=== PATIENT | male | born 1960 | race Caucasian/White ===

== ENCOUNTER 2017-02-16 16:37 | Emergency (ER) | payer OTHER ==
[~2017-02-16] VITALS: Ht 175.3 cm; Wt 80.0 kg
[~2017-02-16 16:37] MED LIST: ALBU0.08 NEB; BUSP30TA PO; CHLO200T5 PO; CHOL1TAB42 PO; CYAN1TAB18 PO; FLUO60TA PO; GABA300C5 PO; LISI-519 PO; MAPA500T PO; NAPR500T PO; PANT40TA3 PO; ROBA750T PO; ROPI.5 PO; VENTAER INH; ZOFR8TAB4 SL
[2017-02-16 16:39] VITALS: BP 138/57; PULSE 104; RESP 17; TEMP 98; O2SAT 98
[2017-02-16] MEDS ORDERED: TETANUS/DIPHTHERIA TOXOID ADULT 0.5 ML VIAL IM ONE (18:30)
--- NOTE | 2017-02-16 18:35 | PD ---
HPI Chief Complaint: Syncope/Near-Syncope Time Seen by Provider: 18:11 Travel History International Travel<30 days: No Contact w/Intl Traveler<30days: No Traveled to known affect area: No History of Present Illness HPI The patient is a 56-year-old male who presents emergency department for left hand pain. The patient states he has a history of syncope, has had multiple admissions in the past with workups including MRI, CT, EEG, Holter monitor, cardiology follow-up, and neurology follow-up. The patient states they can never find a cause of his syncope. The patient states he had a syncopal episode yesterday and landed on his left hand. The patient currently complains of left hand pain over the base of the second and third digit of the left hand with mild swelling. He also notes some superficial abrasions to the second, third, fourth digit of the left hand. He cannot recall his last tetanus shot. He denies any head trauma and denies any current headache, chest pain, shortness breath, palpitations, neck pain, nausea, vomiting, or difficulty moving the upper or lower extremities. The patient is right-hand dominant. PFSH Past Medical History Narrative Medical History of syncope multiple times Arthritis: No Asthma: Yes Autoimmune Disease: No Blood Disorders: No Anxiety: Yes Depression: Yes Heart Rhythm Problems: No Cancer: No Cardiac Catheterization: Yes Cardiovascular Problems: No High Cholesterol: Yes Chemotherapy: No Chest Pain: Yes Congestive Heart Failure: No COPD: Yes Cerebrovascular Accident: No Dementia: Yes Diabetes: No Diminished Hearing: No Endocrine: No Gastrointestinal Disorders: Yes (GERD) GERD: Yes Glaucoma: No Genitourinary: No Headaches: Yes Hepatitis: No Hiatal Hernia: No Hypertension: Yes Immune Disorder: No Implanted Vascular Access Dvce: No Kidney Stones: No Musculoskeletal: No Neurologic: Yes (PRESENILE DEMENTIA, SCHIZO) Psychiatric: Yes (SCHIZO PARANOID) Reproductive: No Respiratory: Yes (ASTHMA) Immunizations Current: No Migraines: No Myocardial Infarction: No Radiation Therapy: No Renal Failure: No Schizophrenia: Yes Seizures: Yes Sickle Cell Disease: No Sleep Apnea: No Thyroid Disease: No Ulcer: No Tetanus Vaccination: < 5 Years Influenza Vaccination: No Past Surgical History Abdominal Surgery: Yes (APPY) AICD: No Appendectomy: Yes Arteriovenous Shunt: No Body Medical Devices: NONE Cardiac Surgery: No Cholecystectomy: No Ear Surgery: No Endocrine Surgery: No Eye Surgery: No Genitourinary Surgery: No Gynecologic Surgery: No Insulin Pump: No Joint Replacement: No Neurologic Surgery: No Oral Surgery: No Pacemaker: No Thoracic Surgery: No Other Surgery: Yes Social History Alcohol Use: Yes (OCC) Tobacco Use: Yes (2 PPD) Substance Use: Yes ( MARIJUANA MONTHLY) Allergies-Medications (Allergen,Severity, Reaction): Coded Allergies: Iodine (Verified Allergy, Severe, Cardiac Arrest, 02/16/17) *MDRO Multi-Drug Resistant Organism (Verified Allergy, Unknown, 02/16/17) MRSA Sputum 06/2009 Penicillin (Verified Allergy, Unknown, pt states not allergic to penicillin, 02/16/17) Reported Meds & Prescriptions Reported Meds & Active Scripts Active Reported Mapap (Acetaminophen) 500 Mg Tab 500 Mg PO DAILY PRN Zofran Odt (Ondansetron Odt) 8 Mg Tab 8 Mg SL Q8H PRN Eql B-12 (Cyanocobalamin) 1,000 Mcg Tab 1,000 Mcg PO DAILY Ventolin Hfa 18 GM Inh (Albuterol Sulfate) 90 Mcg/Act Aer 1 Puff INH Q6HR PRN Albuterol Neb (Albuterol Sulfate) 2.5 Mg/3 Ml Neb 2.5 Mg NEB TID NEB PRN Fluoxetine (Fluoxetine HCl) 60 Mg Tab 60 Mg PO DAILY Pantoprazole (Pantoprazole Sodium) 40 Mg Tab 40 Mg PO DAILY Gabapentin 300 Mg Cap 300 Mg PO HS Lisinopril 5 Mg Tab 5 Mg PO DAILY Vitamin D-3 (Cholecalciferol) 2,000 Unit Tab 2,000 Units PO DAILY Chlorpromazine (Chlorpromazine HCl) 200 Mg Tab 400 Mg PO HS Chlorpromazine (Chlorpromazine HCl) 200 Mg Tab 200 Mg PO BID Requip (Ropinirole HCl) 0.5 Mg Tab 0.5 Mg PO BID Buspirone (Buspirone HCl) 30 Mg Tab 30 Mg PO TID Review of Systems Except as stated in HPI: all other systems reviewed are Neg HENT: No: Lightheadedness Cardiovascular: Positive: Syncope, No: Chest Pain or Discomfort, Palpitations , Irregular Rhythm, Tachycardia, Diaphoresis Respiratory: No: Shortness of Breath Gastrointestinal: No: Nausea, Vomiting, Abdominal Pain Musculoskeletal: Positive: Edema, Pain, No: Weakness Neurologic: Positive: Syncope, No: Dizziness Physical Exam Narrative GENERAL: Awake, alert, pleasant 56-year-old male who appears his stated age and is in no acute respiratory distress. SKIN: Focused skin assessment warm/dry. HEAD: Atraumatic. Normocephalic. EYES: Pupils equal and round. No scleral icterus. No injection or drainage. ENT: No nasal bleeding or discharge. Mucous membranes pink and moist. NECK: Trachea midline. No JVD. No tenderness of the cervical vertebrae. CARDIOVASCULAR: Regular rate and rhythm. No murmur appreciated. RESPIRATORY: No accessory muscle use. Clear to auscultation. Breath sounds equal bilaterally. GASTROINTESTINAL: Abdomen soft, non-tender, nondistended. Well-healed scar right lower quadrant. No rebound tenderness. MUSCULOSKELETAL: The left hand is mildly edematous and tender over the distal second and third metacarpal. Slightly limited range of motion secondary edema. Positive left radial pulse. Superficial abrasions to the extensor surface of the second, third, fourth digit of the left hand. NEUROLOGICAL: Awake and alert. No obvious cranial nerve deficits. Motor grossly within normal limits. Normal speech. Nonfocal. Oriented 4. Follows commands without difficulty. PSYCHIATRIC: Appropriate mood and affect; insight and judgment normal. Data Data Last Documented VS Vital Signs Date Time Temp Pulse Resp B/P Pulse Ox O2 Delivery O2 Flow Rate FiO2 02/16/17 18:17 Room Air 02/16/17 16:39 98.0 104 17 138/57 98 Orders Hand, Limited (2vws) (02/16/17 ) Tetanus/Diphtheria Tox Adult (Tetanus/Di (02/16/17 18:30) Splinting (02/16/17 ) MDM Medical Decision Making Medical Screen Exam Complete: Yes Emergency Medical Condition: Yes Medical Record Reviewed: Yes Differential Diagnosis Differential diagnosis includes arrhythmia, syncope, vasovagal 60, seizure, fracture, contusion, cellulitis. Narrative Course I had a discussion with the patient regarding his syncope. The patient states he's had multiple workups including MRI, CT, Holter monitor, echocardiogram, EEG , neurology follow-up, and cardiology follow-up. The patient requests no further workup in regards to his syncope. The patient's left hand was swollen and edematous, therefore, x-ray of the left hand was obtained. Tetanus shot was updated. Diagnosis Primary Impression: Metacarpal bone fracture Qualified Code: S62.305A - Closed displaced fracture of fourth metacarpal bone of left hand, unspecified portion of metacarpal, initial encounter Additional Impressions: Fracture of third metacarpal bone Qualified Code: S62.303A - Closed displaced fracture of third metacarpal bone of left hand, unspecified portion of metacarpal, initial encounter Abrasions of multiple sites Referrals: Rafaela Townsend MD call for appointment Patient Instructions: General Instructions Additional Instructions: Ulnar gutter splint as directed. Medications as directed. Follow-up with hand surgery. Elevate, ice, return if symptoms worsen or progress. Med/Other Pt SpecificInfo: Prescription(s) given Scripts Sulfamethoxazole-Trimethoprim (Bactrim DS)800-160 Mg Tab1 Tab PO BID #14 TAB Ref 0 Prov:Abimael Zendejas MD 02/16/17 Ibuprofen 600 Mg [id number] Mg PO Q6H PRN (Pain/Inflammation) #20 TAB Ref 0 Prov:Abimael Zendejas MD 02/16/17 Disposition: 01 DISCHARGE HOME Condition: Stable Abimael Zendejas MD Feb 16, 2017 18:34
[2017-02-16] MEDS ORDERED: BACT800T5 PO (18:59)
[2017-02-16] MEDS ORDERED: IBUP-232 PO (18:59)
--- NOTE | 2017-02-16 19:39 | RADRPT ---
EXAM DATE/TIME: 02/16/2017 18:39 [facility] COMPARISON: No previous studies available for comparison. INDICATIONS : Fall. MEDICAL HISTORY : None. SURGICAL HISTORY : None. ENCOUNTER: Initial ACUITY: 1 day PAIN SCORE: 10/10 LOCATION: Left hand FINDINGS: There are acute mildly displaced fractures involving the shafts of the left 3rd and 4th metacarpals. Associated soft-tissue swelling is noted along the dorsum of the left hand. CONCLUSION: 1. Acute mildly displaced fractures involving the shafts of the left 3rd and 4th metacarpals with as sociated soft-tissue swelling dorsally. Woo Sandoval MD on February 16, 2017 at 19:28 Board Certified Radiologist. This report was verified electronically.
== END 2017-02-16 20:24 | disposition home or self-care (01) ==
LOC: NEPB 16:37
DX: S62.325A Displaced fracture of shaft of fourth metacarpal bone, left hand, initial encounter for closed fracture (principal); S62.323A Displaced fracture of shaft of third metacarpal bone, left hand, initial encounter for closed fracture; R55 Syncope and collapse; S60.411A Abrasion of left index finger, initial encounter; S60.413A Abrasion of left middle finger, initial encounter; S60.415A Abrasion of left ring finger, initial encounter; W01.0XXA Fall on same level from slipping, tripping and stumbling without subsequent striking against object, initial encounter; Y93.89 Activity, other specified; Y92.009 Unspecified place in unspecified non-institutional (private) residence as the place of occurrence of the external cause; J45.909 Unspecified asthma, uncomplicated; I10 Essential (primary) hypertension; F17.210 Nicotine dependence, cigarettes, uncomplicated; Z23 Encounter for immunization
CPT/HCPCS: 29125; 73120; 90471; 90714

== ENCOUNTER 2019-01-13 14:48 | Inpatient (IN) ==
[2019-01-13] MEDS ORDERED: Sod Chloride 0.9% Inj 1,000 ML IV.SIG ONE (15:13)
--- NOTE | 2019-01-13 15:17 | ED ---
HPI General Chief complaint: Syncope Stated complaint: Poss Syncope Time Seen by Provider: 01/13/19 15:12 History of Present Illness HPI narrative: 58-year-old male with a history of COPD, schizophrenia is brought to the emergency department by EMS for evaluation of syncope. Per EMS report the patient was on his front porch when he had an episode of syncope and collapse witnessed by his . The patient states that he has had nausea and vomiting for the last week. States that he has been unable to keep any food or fluids down due to vomiting. States he has not had a bowel movement in the last week. States he has had episodes of vomiting like this in the past, states he is supposed to be on medications for this at home but is unsure what they are called. States that today he has been feeling weak and lightheaded. States that he does recall feeling as though he was going to pass out prior to the syncopal episode. States he has passed out in the past as well. States he has had shortness of breath which is typical for him due to COPD. States he has had mild abdominal discomfort. Denies any fever, chills, chest pain, diarrhea, black or bloody stool, cough or cold symptoms, headache, numbness or tingling, one-sided weakness. He is awake, alert and oriented to person, place and year but is unsure of the date. No other complaints. Related Data Home Medications Medication Instructions Recorded Confirmed atorvastatin 40 mg PO QPM 01/13/19 01/13/19 buspirone 30 mg PO TID 01/13/19 01/13/19 chlorpromazine 200 mg PO BID 01/13/19 01/13/19 diphenhydramine HCl 100 mg PO HS 01/13/19 01/13/19 gabapentin 300 mg PO HS 01/13/19 01/13/19 pantoprazole 40 mg PO BID 01/13/19 01/13/19 trazodone 100 mg PO HS 01/13/19 01/13/19 Allergies Allergy/AdvReac Type Severity Reaction Status Date / Time iodine Allergy Severe Cardiac Verified 01/13/19 16:05 Arrest potassium iodide Allergy Severe Cardiac Verified 01/13/19 16:05 Arrest povidone-iodine Allergy Severe Cardiac Verified 01/13/19 16:05 Arrest sodium iodide Allergy Severe Cardiac Verified 01/13/19 16:05 Arrest sodium iodide Allergy Severe Cardiac Verified 01/13/19 16:05 Arrest penicillin G Allergy Unknown pt states Verified 01/13/19 16:05 not allergic to penicillin *MDRO Multi-Drug Resistant Allergy Unknown unknown Uncoded 01/13/19 16:05 Organism Review of Systems ROS: all other systems reviewed are negative [facility] Medical History Medical History Asthma (Acute) COPD (chronic obstructive pulmonary disease) (Acute) Schizophrenia (Acute) Seizure (Acute) Surgical History Surgical History History of appendectomy (Acute) Social History Social History Substance History: No History of Abuse Second Hand Smoke Exposure: No Smoking Status: Current every day smoker Tobacco Type: Cigarettes How Often Do You Have a Drink Containing Alcohol: 4 or more times a week Recent Travel in [facility] within the Last 8 Weeks: No Recent Out of Country Travel within the Last 8 Weeks: No Exam Narrative Exam Narrative: GENERAL: Well-nourished and well-developed pleasant patient in no acute distress who is nontoxic appearing. SKIN: Warm and dry without any obvious rashes or lesions. HEAD: Normocephalic and atraumatic. EYES: No injection, drainage, or hyphema noted. PERRLA. EOMI. ENT: No nasal drainage noted. Oropharynx is clear and the TMs are normal with good landmarks. NECK: Supple and the trachea is midline. CARDIOVASCULAR: Regular rate and rhythm. RESPIRATORY: Breath sounds are equal bilaterally with no accessory muscle use, wheezing, rhonchi, or crackles. GASTROINTESTINAL: Mild generalized abdominal tenderness to palpation. Abdomen is soft and nondistended. MUSCULOSKELETAL: No obvious deformities, swelling, cyanosis, or ecchymosis is present throughout the upper and lower extremities. Patient has full range of motion without any signs of neurovascular compromise. Distal pulses are 2+ throughout. Strength 5/5 upper and lower extremities equal bilaterally. NEUROLOGICAL: Awake, alert, and oriented. Normal speech and gait. Cranial nerves are grossly intact. Course Initial Documented Vital Signs Temperature 98.7 F 01/13/19 15:06 Pulse Rate 99 H 01/13/19 15:06 Respiratory Rate 16 01/13/19 15:06 Blood Pressure 106/64 01/13/19 15:06 Pulse Oximetry 95 01/13/19 15:06 Last Documented Vital Signs Temperature 97.8 F 01/14/19 04:05 Pulse Rate 78 01/14/19 04:05 Respiratory Rate 20 01/14/19 04:05 Blood Pressure 112/60 01/14/19 04:05 Pulse Oximetry 92 L 01/14/19 04:05 Medical Decision Making SHRAVAN Attestation SHRAVAN supervised visit: Yes Attestation: I, Dr. Bowden, have reviewed the advance practice practitioner's documentation and am in agreement, met with the patient face to face, made the diagnosis, and the medical decision making was done by me. *My assessment and Findings: Patient is a 58 year old male who comes in after a syncopal episode. Patient reports multiple episodes of vomiting daily for months. He says he has passed out in the past. Exam shows no abdominal tenderness to palpation, he is awake, alert, in no acute distress. Labs concerning for potassium of 2.1, sodium 121. Potassium replaced. Given 1 L NS. Admitted for further management. [facility] Narrative Medical decision making narrative: 58-year-old male presents to the emergency department by EMS for evaluation of vomiting, generalized weakness and syncopal episode. Patient is afebrile, vital signs are stable. IV access is obtained, labs of been drawn and sent. Patient is placed on cardiac telemetry and pulse oximetry monitoring. Patient is administered IV fluids. Chest x-ray is negative. CBC shows leukocytosis with white blood count 27.8, otherwise unremarkable. Coags are unremarkable. CMP shows acute kidney injury with creatinine 2.83, BUN 54, GFR 23. Hyponatremia with sodium 121. Hypokalemia with potassium 2.1. Troponin is less than 0.02. Lactic acid and blood cultures are pending. Head CT is unremarkable. Chest x-ray is unremarkable. CT of the abdomen and pelvis without contrast shows a tiny nonobstructing stone in the right kidney and hazy opacity right lower lobe possibly inflammatory otherwise unremarkable. Patient is administered 50 mEq orally of potassium and 30 mEq IV for repletion. Patient is administered Rocephin 1 g IV, Zithromax 500 mg IV and clindamycin 600 mg IV to cover for either community-acquired pneumonia or aspiration pneumonia. I spoke with Dr. Rodriguez [facility] who accepts the patient to his service for admission. Medical Screen Exam Complete: Yes Emergency Medical Condition: Yes Differential Diagnosis Differential Diagnosis: Dehydration versus electrolyte abnormality versus gastroenteritis versus colitis versus bowel obstruction Lab Data Result diagrams: 01/13/19 15:34 01/13/19 19:15 Lab Results 01/13/19 01/13/19 01/13/19 Range/Units 15:34 15:34 15:34 WBC 27.8 H (4.0-11.0) th/mm3 RBC 4.78 (4.50-5.90) mil/mm3 Hgb 14.8 (13.0-17.0) gm/dL Hct 42.4 (39.0-51.0) % MCV 88.7 (80.0-100.0) fL MCH 31.1 (27.0-34.0) pg MCHC 35.0 (32.0-36.0) % RDW 15.5 (11.6-17.2) % Plt Count 355 (150-450) th/mm3 MPV 9.9 (7.0-11.0) fL Prelim Diff (Auto) Slide review pending Neut % (Auto) 85.5 H (16.0-70.0) % Lymph % (Auto) 5.5 L (9.0-44.0) % [place] % (Auto) 8.9 H (0.0-8.0) % Eos % (Auto) 0.0 (0.0-4.0) % Baso % (Auto) 0.1 (0.0-2.0) % Neut # (Auto) 23.8 H (1.8-7.7) th/mm3 Lymph # (Auto) 1.5 (1.0-4.8) th/mm3 [place] # (Auto) 2.5 H (0.0-0.9) th/mm3 Eos # (Auto) 0.0 (0.0-0.4) th/mm3 Baso # (Auto) 0.0 (0.0-0.2) th/mm3 WBC Differential Manual diff final Seg Neuts % (Manual) 85 H (16-70) % Band Neuts % (Manual) 2 (0-6) % Lymphocytes % (Manual) 5 L (9-44) % Monocytes % (Manual) 7 (0-8) % Promyelocytes % (Man) 1 H (0-0) % Abs Neuts (Manual) 24.5 H (1.8-7.7) th/mm3 Differential Comment . Dohle Bodies Present H (None) Platelet Estimate Normal (Normal) Platelet Morphology Normal (Normal) PT 9.8 (9.8-11.6) sec INR 1.0 Ratio APTT 33.6 H (23.4-31.7) sec Sodium 121 L* (136-145) meq/L Potassium 2.1 L* (3.5-5.1) meq/L Chloride 71 L (98-107) meq/L Carbon Dioxide 32.8 H (21.0-32.0) meq/L Anion Gap 17 H (5-15) meq/L BUN 54 H (7-18) mg/dL Creatinine 2.83 H (0.60-1.30) mg/dL Estimated GFR 23 L (>89) mL/min Random Glucose 120 H (74-106) mg/dL Lactic Acid (0.4-2.0) mmol/L Calcium 8.8 (8.5-10.1) mg/dL Magnesium 2.6 H (1.5-2.5) mg/dL Total Bilirubin 1.1 H (0.2-1.0) mg/dL AST 23 (15-37) U/L ALT 23 (12-78) U/L Alkaline Phosphatase 102 (45-117) U/L Troponin I Less than 0.02 L (0.02-0.05) ng/mL B-Natriuretic Peptide (0-100) pg/mL Total Protein 7.7 (6.4-8.2) g/dL Albumin 3.8 (3.4-5.0) g/dL Urine Color (Yellw/Straw) Urine Clarity (Clear) Urine pH (5.0-8.5) Ur Specific [place] (1.002-1.035) Urine Protein (Neg-Trace) mg/dL Urine Glucose (UA) (Negative) mg/dL Urine Ketones (Negative) mg/dL Urine Occult Blood (Negative) Urine Nitrate (Negative) Urine Bilirubin (Negative) Urine Urobilinogen (Less than 2) mg/dL Ur Leukocyte Esterase (Negative) Urine WBC (0-5) /hpf Hyaline Casts (0-3) /lpf Urine Mucus (Occasional) /lpf Micro UA Comment Ur Microscopic Review Urine Culture Comments 01/13/19 01/13/19 01/13/19 Range/Units 15:34 19:10 19:15 WBC (4.0-11.0) th/mm3 RBC (4.50-5.90) mil/mm3 Hgb (13.0-17.0) gm/dL Hct (39.0-51.0) % MCV (80.0-100.0) fL MCH (27.0-34.0) pg MCHC (32.0-36.0) % RDW (11.6-17.2) % Plt Count (150-450) th/mm3 MPV (7.0-11.0) fL Prelim Diff (Auto) Neut % (Auto) (16.0-70.0) % Lymph % (Auto) (9.0-44.0) % [place] % (Auto) (0.0-8.0) % Eos % (Auto) (0.0-4.0) % Baso % (Auto) (0.0-2.0) % Neut # (Auto) (1.8-7.7) th/mm3 Lymph # (Auto) (1.0-4.8) th/mm3 [place] # (Auto) (0.0-0.9) th/mm3 Eos # (Auto) (0.0-0.4) th/mm3 Baso # (Auto) (0.0-0.2) th/mm3 WBC Differential Seg Neuts % (Manual) (16-70) % Band Neuts % (Manual) (0-6) % Lymphocytes % (Manual) (9-44) % Monocytes % (Manual) (0-8) % Promyelocytes % (Man) (0-0) % Abs Neuts (Manual) (1.8-7.7) th/mm3 Differential Comment Dohle Bodies (None) Platelet Estimate (Normal) Platelet Morphology (Normal) PT (9.8-11.6) sec INR Ratio APTT (23.4-31.7) sec Sodium (136-145) meq/L Potassium (3.5-5.1) meq/L Chloride (98-107) meq/L Carbon Dioxide (21.0-32.0) meq/L Anion Gap (5-15) meq/L BUN (7-18) mg/dL Creatinine (0.60-1.30) mg/dL Estimated GFR (>89) mL/min Random Glucose (74-106) mg/dL Lactic Acid 1.3 (0.4-2.0) mmol/L Calcium (8.5-10.1) mg/dL Magnesium (1.5-2.5) mg/dL Total Bilirubin (0.2-1.0) mg/dL AST (15-37) U/L ALT (12-78) U/L Alkaline Phosphatase (45-117) U/L Troponin I (0.02-0.05) ng/mL B-Natriuretic Peptide 16 (0-100) pg/mL Total Protein (6.4-8.2) g/dL Albumin (3.4-5.0) g/dL Urine Color Yellow (Yellw/Straw) Urine Clarity Hazy H (Clear) Urine pH 5.0 (5.0-8.5) Ur Specific [place] 1.016 (1.002-1.035) Urine Protein Negative (Neg-Trace) mg/dL Urine Glucose (UA) Negative (Negative) mg/dL Urine Ketones Negative (Negative) mg/dL Urine Occult Blood Negative (Negative) Urine Nitrate Negative (Negative) Urine Bilirubin Negative (Negative) Urine Urobilinogen Less than 2 (Less than 2) mg/dL Ur Leukocyte Esterase Negative (Negative) Urine WBC 1 (0-5) /hpf Hyaline Casts 55 (0-3) /lpf Urine Mucus Few H (Occasional) /lpf Micro UA Comment Culture not ind Ur Microscopic Review Not Reportable Urine Culture Comments Culture not ind 01/13/19 Range/Units 19:15 WBC (4.0-11.0) th/mm3 RBC (4.50-5.90) mil/mm3 Hgb (13.0-17.0) gm/dL Hct (39.0-51.0) % MCV (80.0-100.0) fL MCH (27.0-34.0) pg MCHC (32.0-36.0) % RDW (11.6-17.2) % Plt Count (150-450) th/mm3 MPV (7.0-11.0) fL Prelim Diff (Auto) Neut % (Auto) (16.0-70.0) % Lymph % (Auto) (9.0-44.0) % [place] % (Auto) (0.0-8.0) % Eos % (Auto) (0.0-4.0) % Baso % (Auto) (0.0-2.0) % Neut # (Auto) (1.8-7.7) th/mm3 Lymph # (Auto) (1.0-4.8) th/mm3 [place] # (Auto) (0.0-0.9) th/mm3 Eos # (Auto) (0.0-0.4) th/mm3 Baso # (Auto) (0.0-0.2) th/mm3 WBC Differential Seg Neuts % (Manual) (16-70) % Band Neuts % (Manual) (0-6) % Lymphocytes % (Manual) (9-44) % Monocytes % (Manual) (0-8) % Promyelocytes % (Man) (0-0) % Abs Neuts (Manual) (1.8-7.7) th/mm3 Differential Comment Dohle Bodies (None) Platelet Estimate (Normal) Platelet Morphology (Normal) PT (9.8-11.6) sec INR Ratio APTT (23.4-31.7) sec Sodium 126 L (136-145) meq/L Potassium 2.9 L* D (3.5-5.1) meq/L Chloride 83 L D (98-107) meq/L Carbon Dioxide 31.3 (21.0-32.0) meq/L Anion Gap 12 (5-15) meq/L BUN 48 H (7-18) mg/dL Creatinine 2.11 H (0.60-1.30) mg/dL Estimated GFR 33 L (>89) mL/min Random Glucose 106 (74-106) mg/dL Lactic Acid (0.4-2.0) mmol/L Calcium 7.7 L D (8.5-10.1) mg/dL Magnesium (1.5-2.5) mg/dL Total Bilirubin (0.2-1.0) mg/dL AST (15-37) U/L ALT (12-78) U/L Alkaline Phosphatase (45-117) U/L Troponin I (0.02-0.05) ng/mL B-Natriuretic Peptide (0-100) pg/mL Total Protein (6.4-8.2) g/dL Albumin (3.4-5.0) g/dL Urine Color (Yellw/Straw) Urine Clarity (Clear) Urine pH (5.0-8.5) Ur Specific [place] (1.002-1.035) Urine Protein (Neg-Trace) mg/dL Urine Glucose (UA) (Negative) mg/dL Urine Ketones (Negative) mg/dL Urine Occult Blood (Negative) Urine Nitrate (Negative) Urine Bilirubin (Negative) Urine Urobilinogen (Less than 2) mg/dL Ur Leukocyte Esterase (Negative) Urine WBC (0-5) /hpf Hyaline Casts (0-3) /lpf Urine Mucus (Occasional) /lpf Micro UA Comment Ur Microscopic Review Urine Culture Comments Imaging Data Radiologist's impression: Chest X-Ray 01/13/19 15:13 CONCLUSION: Negative for acute process Head CT 01/13/19 15:13 CONCLUSION: 1. Negative CT Head non contrast. . . Abdomen/Pelvis CT 01/13/19 15:17 CONCLUSION: There is a tiny nonobstructing stone in the right kidney with hazy opacity right lower lobe possibly inflammatory, otherwise unremarkable. Discharge Plan Discharge Disposition Patient Disposition: ED Admit(ED Internal Use Only) Discharge Condition Condition: Stable Discharge Order Discharge Orders: ED Use Only Admit Order (Routine); Ordered 01/13/19 Ordered By: Christina George Discharge Details Diagnosis: MARY BETH (acute kidney injury), Hyponatremia, Hypokalemia, Pneumonia, Syncope Physicians Team ED Provider: Natalie Bowden ED Midlevel Provider: Christina George Primary Care Provider: Temo Hunt Attending Provider: Haile Cruz Other Providers: Stanley Rome Status ED Status: Left Department Discharge Information Discharge Date/Time: 01/13/19 21:35
--- NOTE | 2019-01-13 15:58 | XR ---
EXAM DATE: 01/13/2019 3:48 PM EST AGE/SEX: 58 years / Male INDICATIONS: Patient has syncopal episode today and shortness of breath. CLINICAL DATA: This is the patient's initial encounter. Patient reports that signs and symptoms have been present for 1 month and indicates a pain score of 3/10. MEDICAL/SURGICAL HISTORY: None. None. COMPARISON: [facility] [place]ST SINGLE AP, 04/14/2016. . FINDINGS: A single AP view of the chest demonstrates the lungs to be symmetrically aerated without evidence of mass, infiltrate or effusion. The cardiomediastinal contours are unremarkable. Osseous structures a re intact. CONCLUSION: Negative for acute process Electronically signed by: Mart Dodson MD Board Certified Radiologist 01/13/2019 3:57 PM EST
[2019-01-13 16:31] LABS: Activated Partial Thrombo Time 33.6 sec (23.4-31.7); Prothrombin Time 9.8 sec (9.8-11.6)
[2019-01-13 17:00] LABS: Alanine Aminotransferase 23 U/L (12-78); Albumin 3.8 g/dL (3.4-5.0); Alkaline Phosphatase 102 U/L (45-117); Anion Gap 17 meq/L (5-15); Aspartate Aminotransferase 23 U/L (15-37); Blood Urea Nitrogen 54 mg/dL (7-18); Calcium 8.8 mg/dL (8.5-10.1); Carbon Dioxide 32.8 meq/L (21.0-32.0); Chloride 71 meq/L (98-107); Glomerular Filtration Rate 23 mL/min (>89); Glucose,Random 120 mg/dL (74-106); Magnesium 2.6 mg/dL (1.5-2.5); Total Protein 7.7 g/dL (6.4-8.2)
--- NOTE | 2019-01-13 17:05 | CT ---
EXAM DATE: 01/13/2019 5:00 PM EST AGE/SEX: 58 years / Male INDICATIONS: Dizziness. Syncopal episode. CLINICAL DATA: This is the patient's initial encounter. Patient reports that signs and symptoms have been present for 1 day and indicates a pain score of 2/10. MEDICAL/SURGICAL HISTORY: Asthma. Chronic obstructive pulmonary disease. Seizures. Schizophrenia . Appendectomy. RADIATION DOSE: 46 CTDI (mGy) COMPARISON: No prior exams available for comparison. TECHNIQUE: CT of the head without contrast. Using automated exposure control and adjustment of the mA and/or kV according to patient size, radiation dose was kept as low as reasonably achievable to ob tain optimal diagnostic quality images. DICOM format image data is available electronically for revi ew and comparison. FINDINGS: Cerebrum: The ventricles are normal for age. No evidence of midline shift, mass lesion, hemorrhage or acute infarction. No extraaxial fluid collections are seen. Posterior Fossa: The cerebellum and brainstem are intact. The 4th ventricle is midline. The cerebe llopontine angle is unremarkable. Extracranial: The visualized portion of the orbits is intact. Skull: The calvaria is intact. No evidence of skull fracture. CONCLUSION: 1. Negative CT Head non contrast. . . Electronically signed by: Shawn Bardales MD Board Certified Radiologist 01/13/2019 5:04 PM EST
[2019-01-13 17:09] LABS: Baso % (Auto) 0.1 % (0.0-2.0); Hematocrit 42.4 % (39.0-51.0); Hemoglobin 14.8 gm/dL (13.0-17.0); Lymph # (Auto) 1.5 th/mm3 (1.0-4.8); Lymph % (Auto) 5.5 % (9.0-44.0); Mean Corpuscular Hemoglobin 31.1 pg (27.0-34.0); Mean Corpuscular Volume 88.7 fL (80.0-100.0); Mean Platelet Volume 9.9 fL (7.0-11.0); Mono # (Auto) 2.5 th/mm3 (0.0-0.9); Mono % (Auto) 8.9 % (0.0-8.0); Neut # (Auto) 23.8 th/mm3 (1.8-7.7); Neut % (Auto) 85.5 % (16.0-70.0); Platelet Count 355 th/mm3 (150-450); Potassium 2.1 meq/L (3.5-5.1); Red Blood Count 4.78 mil/mm3 (4.50-5.90); Red Cell Distribution Width 15.5 % (11.6-17.2); Sodium 121 meq/L (136-145); White Blood Count 27.8 th/mm3 (4.0-11.0)
--- NOTE | 2019-01-13 17:09 | CT ---
EXAM DATE: 01/13/2019 5:01 PM EST AGE/SEX: 58 years / Male INDICATIONS: Abdominal pain. Syncopal episode. CLINICAL DATA: This is the patient's initial encounter. Patient reports that signs and symptoms have been present for 1 day and indicates a pain score of 3/10. MEDICAL/SURGICAL HISTORY: Asthma. Chronic obstructive pulmonary disease. Seizures. Schizophr enia. Appendectomy. RADIATION DOSE: 6.28 CTDI (mGy) COMPARISON: No prior exams available for comparison. TECHNIQUE: Multiple contiguous axial images were obtained through the abdomen. Images were obtained using multiple row detector helical technique. Using automated exposure control and adjustment of the mA and/or kV according to patient size, radiation dose was kept as low as reasonably achievable to o btain optimal diagnostic quality images. DICOM format image data is available electronically for rev iew and comparison. FINDINGS: Abdomen CT: The liver, spleen, pancreas, right kidney, adrenals are unremarkable. There is a tiny 3 mm stone righ t lower pole kidney nonobstructing. There is no evidence for any appreciable pathological adenopathy, free fluid, or bowel obstruction. There is mild haziness right lower lobe anterolateral possibly inf lammatory process. There are atherosclerotic calcifications involving the aorta and iliac arteries ch ronic in nature. Pelvic CT: There is no evidence for mass, abscess formation, or any significant adenopathy within the pelvis. CONCLUSION: There is a tiny nonobstructing stone in the right kidney with hazy opacity right lower lo be possibly inflammatory, otherwise unremarkable. Electronically signed by: Juan Diego Pearson MD Board Certified Radiologist 01/13/2019 5:08 PM EST
[2019-01-13] MEDS ORDERED: Clindamycin 600 mg/NS Premix 600 MG/50 ML PIGGYBACK IV.SIG ONE (17:53)
[2019-01-13] MEDS ORDERED: Azithromycin Inj 500 MG in Sodium Chlor 0.9% Inj 250 ML IV.SIG ONE (17:53)
[2019-01-13] MEDS: Potassium Chlor 10 mEq Premix 10 MEQ/100 ML PIGGYBACK IV.SIG SCH ×3 (17:55→20:11)
[2019-01-13 18:09] LABS: Dohle Bodies Present; Lymphocytes 5 % (9-44); Monocytes 7 % (0-8); Platelet Estimate Normal (Normal); Platelet Morphology Normal (Normal); Promyelocyte 1 % (0-0)
--- NOTE | 2019-01-13 18:36 | P.HPIM ---
History of Present Illness Primary Care Physician: Temo Hunt MD Chief Complaint: 'I passed out'. History of Present Illness: patient is a 58 y/o male with history of schizophrenia who presented to ER after he passed out earlier. he says that he' s had persistent nausea and vomiting for the past few months. he reportedly had an EGD and colonoscopy recently which showed esophageal ulcers and colon polyps. he says that earlier today he had some sob and then he passed out. he remained unconscious for about three minutes. he denies any other prodromal symptoms before the incident including chest pain, dizziness. he denies any abdominal pain, diarrhea, cough, although he says that he had a low grade fever at home. Inpatient Certification Inpatient Certification: I certify that the inpatient services were ordered in accordance with Medicare regulations governing the order. This includes certification that hospital inpatient services are reasonable and necessary and in the case of services not specified as inpatient-only under 42 CFR 419.22(n), that they are appropriately provided as inpatient services in accordance to with the 2-midnight benchmark under 43 CFR 412.3(e) Estimated Total Length of Stay (Days): 2 Plans for Post Hospital Care: Home Review of Systems Review of Systems: all other systems reviewed are negative [facility] Medical History Medical History Asthma (Acute) COPD (chronic obstructive pulmonary disease) (Acute) Schizophrenia (Acute) Seizure (Acute) Surgical History Surgical History History of appendectomy (Acute) Social History Social History Substance History: Active Abuse Smoking Status: Current every day smoker Tobacco Type: Cigarettes How Often Do You Have a Drink Containing Alcohol: 4 or more times a week Recent Travel in [place] within the Last 8 Weeks: No Recent Out of Country Travel within the Last 8 Weeks: No Substance Abuse Detail Marijuana: Substance Use Status: Active Route Used Substance Abuse: Inhalation Immunization History Tetanus Immunization: Unsure Medications and Allergies Allergies Allergy/AdvReac Type Severity Reaction Status Date / Time iodine Allergy Severe Cardiac Verified 01/13/19 16:05 Arrest potassium iodide Allergy Severe Cardiac Verified 01/13/19 16:05 Arrest povidone-iodine Allergy Severe Cardiac Verified 01/13/19 16:05 Arrest sodium iodide Allergy Severe Cardiac Verified 01/13/19 16:05 Arrest sodium iodide Allergy Severe Cardiac Verified 01/13/19 16:05 Arrest penicillin G Allergy Unknown pt states Verified 01/13/19 16:05 not allergic to penicillin *MDRO Multi-Drug Resistant Allergy Unknown unknown Uncoded 01/13/19 16:05 Organism Home Medications Medication Instructions Recorded Confirmed Type atorvastatin 40 mg PO QPM 01/13/19 01/13/19 History buspirone 30 mg PO TID 01/13/19 01/13/19 History chlorpromazine 200 mg PO BID 01/13/19 01/13/19 History diphenhydramine HCl 100 mg PO HS 01/13/19 01/13/19 History gabapentin 300 mg PO HS 01/13/19 01/13/19 History pantoprazole 40 mg PO BID 01/13/19 01/13/19 History trazodone 100 mg PO HS 01/13/19 01/13/19 History Active Medications: Active Medications Gabapentin (Neurontin) 300 mg PO HS [facility] Potassium Chloride (Kcl 10 Meq Premix Inj) 10 meq in 100 mls @ 100 mls/hr IV.SIG Q1H ROSALVA Stop: 01/13/19 20:29 Last Admin: 01/13/19 17:55 Dose: 100 mls/hr Azithromycin 500 mg/ Sodium (Chloride) 250 mls @ 250 mls/hr IV.SIG ONCE ONE Stop: 01/13/19 18:52 Piperacillin/Tazobactam/Dextrose (Zosyn 2.25 Gm Premix) 2.25 gm in 50 mls @ 100 mls/hr IV.SIG Q6H ROSALVA Non-Formulary Medication (Buspirone [Buspirone]) 30 mg PO TID [facility] Non-Formulary Medication (Chlorpromazine [Chlorpromazine]) 200 mg PO BID [facility] Ondansetron HCl (Zofran Inj) 4 mg IV.PUSH Q8H PRN PRN Reason: NAUSEA Trazodone HCl (Desyrel) 100 mg PO HS [facility] Physical Exam Vital signs: Vital Signs 01/13/19 15:06 01/13/19 17:32 Temperature 98.7 F Pulse Rate 99 H 100 H Respiratory Rate 16 21 Blood Pressure 106/64 139/87 Pulse Oximetry 95 97 Intake & Output 02/21/19 02/22/19 02/22/19 18:59 06:59 18:59 Intake Total 1000 / 1000 Balance 1000 / 1000 Weight 81.647 kg Intake: IV 1000 / 1000 NS Inj 1,000 ML @ Wide Open IV. 1000 / 1000 SIG BOLUS ONE Rx#:[id number] Constitutional no acute distress Routine HEENT Exam Eye: Present PERRL Routine Neck Exam Present supple Routine Respiratory Exam Present CTA bilaterally Routine Cardiovascular Exam Present RRR Routine Abdominal Exam Present soft Routine Extremities Exam Comments: no pedal edema. Routine Neurological Exam Present alert and oriented X3 Results Labs CBC & Chem 7: 01/13/19 15:34 01/13/19 15:34 Imaging Impressions Chest X-Ray 01/13/19 15:13 CONCLUSION: Negative for acute process Head CT 01/13/19 15:13 CONCLUSION: 1. Negative CT Head non contrast. . . Abdomen/Pelvis CT 01/13/19 15:17 CONCLUSION: There is a tiny nonobstructing stone in the right kidney with hazy opacity right lower lobe possibly inflammatory, otherwise unremarkable. Caprini VTE Risk Assessment Caprini VTE Risk Assessment: Moderate/High Risk (score >= 2) Caprini Risk Assessment Model: Point Value = 1 Point Value = 2 Point Value = 3 Point Value = 5 Age 41-60 Minor surgery BMI > 25 kg/m2 Swollen legs Varicose veins or History of unexplained or recurrent spontaneous Oral contraceptives or hormone replacement Sepsis (< 1 month) Serious lung disease, including pneumonia (< 1 month) Abnormal pulmonary function Acute myocardial infarction Congestive heart failure (< 1 month) History of inflammatory bowel disease Medical patient at bed rest Age 61-74 Arthroscopic surgery Major open surgery (> 45 min) Laparoscopic surgery (> 45 min) Malignancy Confined to bed (> 72 hours) Immobilizing plaster cast Central venous access Age >= 75 History of VTE Family history of VTE Factor V Leiden Prothrombin [id number] Lupus anticoagulant Anticardiolipin antibodies Elevated serum homocysteine Heparin-induced thrombocytopenia Other congenital or acquired thrombophilia Stroke (< 1 month) Elective arthroplasty Hip, pelvis, or leg fracture Acute spinal cord injury (< 1 month) Prophylaxis Regimen: Total Risk Factor Score Risk Level Prophylaxis Regimen 0-1 Low Early ambulation 2 Moderate Order ONE of the following: *Sequential Compression Device (SCD) *Heparin 5000 units SQ BID 3-4 Higher Order ONE of the following medications: *Heparin 5000 units SQ TID *Enoxaparin/Lovenox 40 mg SQ daily (WT < 150 kg, CrCl > 30 mL/min) *Enoxaparin/Lovenox 30 mg SQ daily (WT < 150 kg, CrCl > 10-29 mL/min) *Enoxaparin/Lovenox 30 mg SQ BID (WT < 150 kg, CrCl > 30 mL/min) AND/OR *Sequential Compression Device (SCD) 5 or more Highest Order ONE of the following medications: *Heparin 5000 units SQ TID (Preferred with Epidurals) *Enoxaparin/Lovenox 40 mg SQ daily (WT < 150 kg, CrCl > 30 mL/min) *Enoxaparin/Lovenox 30 mg SQ daily (WT < 150 kg, CrCl > 10-29 mL/min) *Enoxaparin/Lovenox 30 mg SQ BID (WT < 150 kg, CrCl > 30 mL/min) AND *Sequential Compression Device (SCD) Assessment and Plan Plan A/P - acute kidney injury/ Hypokalemia/ Hyponatremia/ Dehydration due to intractable vomiting continue with IV fluid and electrolyte replacement- repeat BMP tonight- monitor on telemetry. -intractable nausea/vomiting will consult GI- antiemetics as needed -sepsis due to possible pneumonia - possible aspiration continue with broad spectrum IV antibiotics and follow the cultures- monitor CBC and temps. -schizophrenia resume home meds -DVT prophylaxis with subq Heparin. Discussed Condition With: ER physician, the patient and family. Discharge Planning: home when stable.
[2019-01-13 19:43] LABS: Bilirubin,Urine Negative (Negative); Clarity,Urine Hazy (Clear); Color,Urine Yellow (Yellw/Straw); Glucose,Urine (UA) Negative (Negative); Hyaline Casts,Urine 55 /lpf (0-3); Leukocyte Esterase,Urine Negative (Negative); Mucus,Urine Few /lpf (Occasional); Nitrite,Urine Negative (Negative); Specific Gravity,Urine 1.016 (1.002-1.035)
[2019-01-13] MEDS ORDERED: Piperacil/Tazo 2.25 GM Premix 2.25 GM/50 ML PIGGYBACK IV.SIG SCH (20:00)
[2019-01-13 20:12] LABS: Calcium 7.7 mg/dL (8.5-10.1); Carbon Dioxide 31.3 meq/L (21.0-32.0)
[2019-01-13 20:16] LABS: Potassium 2.9 meq/L (3.5-5.1)
[2019-01-13] MEDS: Sod Chloride 0.9% Inj 1,000 ML IV.CONT SCH (20:22)
[2019-01-13] MEDS ORDERED: Influenza (Quadrivalent) Vaccine 0.5 ML Syringe IM ONE (22:00)
[2019-01-13] MEDS: Gabapentin 300 MG Capsule PO SCH (22:15)
[2019-01-13] MEDS: traZODone 100 MG Tablet PO SCH (22:15)
[2019-01-13] MEDS ORDERED: Acetaminophen 325 MG Tablet PO ONE (23:47)
[2019-01-13] MEDS ORDERED: Sodium Chloride 0.9% 2 ML Flush PRN IV.FLUSH (23:53)
[2019-01-14] MEDS: Piperacil/Tazo 2.25 GM Premix 2.25 GM/50 ML PIGGYBACK IV.SIG SCH ×4 (03:35→21:34)
[2019-01-14] MEDS: Sod Chloride 0.9% Inj 1,000 ML IV.CONT SCH (03:48)
[2019-01-14 08:35] LABS: Baso % (Auto) 0.2 % (0.0-2.0); Eos % (Auto) 0.3 % (0.0-4.0); Hemoglobin 11.4 gm/dL (13.0-17.0); Lymph # (Auto) 2.3 th/mm3 (1.0-4.8); Lymph % (Auto) 19.1 % (9.0-44.0); Mean Corpuscular HGB Conc 34.5 % (32.0-36.0); Mean Corpuscular Hemoglobin 31.1 pg (27.0-34.0); Mean Corpuscular Volume 90.1 fL (80.0-100.0); Mean Platelet Volume 9.6 fL (7.0-11.0); Mono # (Auto) 1.1 th/mm3 (0.0-0.9); Mono % (Auto) 9.5 % (0.0-8.0); Neut # (Auto) 8.4 th/mm3 (1.8-7.7); Neut % (Auto) 70.9 % (16.0-70.0); Platelet Count 256 th/mm3 (150-450); Red Blood Count 3.66 mil/mm3 (4.50-5.90); Red Cell Distribution Width 15.6 % (11.6-17.2); White Blood Count 11.8 th/mm3 (4.0-11.0)
[2019-01-14] MEDS: Heparin - SQ 10,000 UNITS/ML Vial SQ SCH ×2 (08:44→20:36)
[2019-01-14] MEDS: Sodium Chloride 0.9% 2 ML Flush BID IV.FLUSH SCH ×2 (08:45→20:37)
[2019-01-14 09:07] LABS: Calcium 7.9 mg/dL (8.5-10.1); Carbon Dioxide 30.8 meq/L (21.0-32.0)
[2019-01-14 09:23] LABS: Potassium 2.2 meq/L (3.5-5.1)
[2019-01-14] MEDS: Potassium Chlor 20 mEq Premix 20 MEQ/100 ML PIGGYBACK IV.SIG SCH ×2 (10:14→13:00)
--- NOTE | 2019-01-14 12:05 | P.PNIM ---
Subjective Interval history: Patient reports he is feeling better today. He is tolerating a liquid diet. He wants to eat regular food. No more nausea or vomiting. Physical Exam Vital signs: Vital Signs 01/13/19 15:06 01/13/19 17:32 01/13/19 20:15 Temperature 98.7 F Pulse Rate 99 H 100 H 102 H Respiratory Rate 16 21 18 Blood Pressure 106/64 139/87 124/68 Pulse Oximetry 95 97 96 01/13/19 20:55 01/13/19 23:50 01/14/19 00:00 Temperature 98.6 F 99.7 F H Pulse Rate 97 H 96 H 94 H Respiratory Rate 20 20 Blood Pressure 111/67 108/57 L Pulse Oximetry 94 L 93 L 01/14/19 03:46 01/14/19 04:05 01/14/19 08:00 Temperature 97.8 F 98.4 F Pulse Rate 77 78 81 Respiratory Rate 20 18 Blood Pressure 112/60 101/66 Pulse Oximetry 92 L 94 L 01/14/19 11:21 Temperature Pulse Rate 84 Respiratory Rate 16 Blood Pressure Pulse Oximetry Intake & Output 01/13/19 01/14/19 01/14/19 18:59 06:59 18:59 Intake Total 1100 / 1100 1174 / 1174 600 / 600 Output Total 950 / 950 Balance 1100 / 1100 224 / 224 600 / 600 Weight 81.647 kg 70.2 kg Intake: IV 1100 / 1100 1054 / 1054 600 / 600 NS Inj 1,000 ML @ 100 mls/hr IV 550 / 550 550 / 550 .CONT .Q10H ROSALVA Rx#:[id number] Cleocin Inj 600 MG In NS Inj 104 / 104 100 ML @ 208 mls/hr IV.SIG ONCE ONE Rx#:[id number] Zosyn 2.25 GM Premix 2.25 gm In 100 / 100 50 / 50 50 ml @ 100 mls/hr IV.SIG Q6H ROSALVA Rx#:[id number] KCl 10 mEq Premix Inj 10 meq In 100 / 100 200 / 200 100 ml @ 100 mls/hr IV.SIG Q1H ROSALVA Rx#:[id number] NS Inj 1,000 ML @ Wide Open IV. 1000 / 1000 SIG BOLUS ONE Rx#:[id number] Oral 120 / 120 Output: Urine 950 / 950 Other: # Bowel Movements 0 Weight On Admission 69.2 kg Narrative: GENERAL: Patient appears somewhat disheveled, appears older than stated age, in no apparent distress. CARDIOVASCULAR: Normal rate and regular rhythm without murmurs, gallops, or rubs. RESPIRATORY: Good respiratory efforts. Breath sounds equal and clear to auscultation bilaterally. GASTROINTESTINAL: Abdomen soft, non-tender, non-distended. Normal active bowel sounds MUSCULOSKELETAL: Extremities without cyanosis, or edema. NEURO: Alert & Oriented x4 to person, place, time, situation. Moves all ext x4 PSYCH: Appropriate mood and affect. Results Labs CBC & Chem 7: 01/14/19 06:15 01/14/19 06:15 Labs: Microbiology 01/13/19 19:09 Blood - Peripheral Aerobic Blood Culture - Preliminary No growth in 1 day 01/13/19 19:09 Blood - Peripheral Anaerobic Blood Culture - Preliminary No growth in 1 day 01/13/19 19:09 Blood - Peripheral Aerobic Blood Culture - Preliminary No growth in 1 day 01/13/19 19:09 Blood - Peripheral Anaerobic Blood Culture - Preliminary No growth in 1 day Imaging Imaging: Impressions Chest X-Ray 01/13/19 15:13 CONCLUSION: Negative for acute process Head CT 01/13/19 15:13 CONCLUSION: 1. Negative CT Head non contrast. . . Abdomen/Pelvis CT 01/13/19 15:17 CONCLUSION: There is a tiny nonobstructing stone in the right kidney with hazy opacity right lower lobe possibly inflammatory, otherwise unremarkable. Assessment and Plan Plan 58-year-old male admitted with acute renal failure secondary to intractable nausea and vomiting. Sepsis due to possible aspiration pneumonia. acute kidney injury/ Hypokalemia/ Hyponatremia/ Dehydration due to intractable vomiting continue with IV fluid and electrolyte replacement- -renal functions improving. Continue to monitor Intractable nausea/vomiting: This could be secondary to marijuana use. Patient also reported history of ulcers -GI consulted. Symptoms significantly improved. - Defer to GI to advance diet as indicated. - Add Protonix Marijuana abuse: -Patient reports he is a daily user. I advised him that this could contribute to his intractable nausea and vomiting but he indicated he has no intention to quit. Patient was counseled to quit given his symptoms. Sepsis due to possible pneumonia - possible aspiration continue with broad spectrum IV antibiotics and follow the cultures- monitor CBC and temps. -Plan to transition to Augmentin tomorrow if he continues to improve. Schizophrenia Continue home meds GI prophylaxis: PPI. DVT PPx: Heparin Progress Note: Quality VTE Deep Vein Thrombosis/Pulmonary Embolism Present on Admission: No
--- NOTE | 2019-01-14 12:47 | P.CONGI ---
History of Present Illness Consult date: 01/14/19 Requesting physician: Azalea Rodriguez Chief complaint: MARY BETH, Hyponatremia, Hypokalemia, RLL Pneumonia History of Present Illness: 58-year-old gentleman with history of schizophrenia we are consulted for chronic nausea and vomiting. Patient presented to the ER after an episode of syncope. Patient states he has had problems with vomiting his entire life. He states that he vomits at least once a day every day. He states that this is worse when he is stressed. He states that he occasionally forces himself to vomit secondary to nausea. He states he actually does this every day. He reports a recent attempt at upper endoscopy was incomplete due to esophageal ulcerations. He believes he has had multiple tests to address his nausea and vomiting in the past although it is been quite some time and he does not recall what tests they might have been. He tells me that the reason he passed out was from hunger. He lives with his and dog and they do not have enough money to buy food. They get their food from [employer]. They eat bread and lunch meat when they can get it but this is not every day according to his report. He admits to drinking 2 beers and half a gallon of iced tea daily. He takes ibuprofen daily for headaches. He smokes 1-1/2 packs/day. He reports occasional diarrhea, approximately once per week and occasional constipation which can last 2-3 days. He does not routinely take any medication for his bowels. He does take medicine for acid reflux, pantoprazole 40 mg daily, with some improvement in symptoms but he states he continues to have chronic heartburn and reflux. On initial workup he was found to have leukocytosis with WBC 27.8. This is presumed to be from sepsis and possible aspiration pneumonia. A CT of the head was negative and a CT of the abdomen and pelvis. He was hypokalemic and hyponatremic with a BUN and creatinine of 54/2.83. <Bonny Harry - Last Filed: 01/14/19 12:31> PMFSH - History History Provided By: Patient, Significant Other - Medical History Medical History: Medical History (Last Reviewed 01/14/19 @ 07:37 by Debbie Nicole Embroidery Cutter, [employer]) Asthma COPD (chronic obstructive pulmonary disease) Schizophrenia Seizure - Surgical History Surgical History: Surgical History (Last Reviewed 01/13/19 @ 18:33 by Azalea Rodriguez MD) History of appendectomy - Tobacco History Second Hand Smoke Exposure: No Tobacco Use In Past 30 Days: Yes Smoking Status: Current every day smoker Tobacco Type: Cigarettes - Alcohol History How Often Do You Have a Drink Containing Alcohol: 4 or more times a week - Substance Use History Substance History: No History of Abuse - Substance Use Type Marijuana Type: marijuana Status: Active Route Used: Inhalation Frequency: once a day Reason for Use: Calm Down - Travel History Recent Travel in the [place] Within the Last 8 Weeks: No Recent Travel Out of the Country Within the Last 8 Weeks: No - Immunization History Tetanus Immunization: <5 Years Hx Influenza Vaccine This Season: No <Bonny Harry - Last Filed: 01/14/19 12:31> - Medical History Medical History: Medical History (Last Reviewed 01/14/19 @ 07:37 by Debbie Nicole Embroidery Cutter, [employer]) Asthma COPD (chronic obstructive pulmonary disease) Schizophrenia Seizure - Surgical History Surgical History: Surgical History (Last Reviewed 01/13/19 @ 18:33 by Azalea Rodriguez MD) History of appendectomy <Stanley Rome - Last Filed: 01/14/19 21:59> Medications and Allergies Active Medications: Active Medications Albuterol (Duoneb Neb (Prn)) 1 ampul NEB Q2HR NEB PRN PRN Reason: SHORTNESS OF BREATH/WHEEZING Last Admin: 01/14/19 11:20 Dose: 1 ampul Buspirone HCl (Buspar) 30 mg PO TID [facility] Last Admin: 01/14/19 08:44 Dose: 30 mg Chlorpromazine HCl (Thorazine) 200 mg PO BID [facility] Last Admin: 01/14/19 08:44 Dose: 200 mg Gabapentin (Neurontin) 300 mg PO HS [facility] Last Admin: 01/13/19 22:15 Dose: 300 mg Heparin Sodium (Porcine) (Heparin Inj) 5,000 units SQ Q12HR [facility] Last Admin: 01/14/19 08:44 Dose: 5,000 units Piperacillin/Tazobactam/Dextrose (Zosyn 2.25 Gm Premix) 2.25 gm in 50 mls @ 100 mls/hr IV.SIG Q6H [facility] Last Infusion: 01/14/19 10:08 Dose: Infused Potassium Chloride (Kcl 20 Meq Premix Inj) 20 meq in 100 mls @ 50 mls/hr IV.SIG Q2H [facility] Stop: 01/14/19 14:59 Last Admin: 01/14/19 10:14 Dose: 50 mls/hr Ondansetron HCl (Zofran Inj) 4 mg IV.PUSH Q8H PRN PRN Reason: NAUSEA Pantoprazole Sodium (Protonix) 40 mg PO DAILY [facility] Sodium Chloride (Ns Flush) 2 ml IV.FLUSH BID [facility] Last Admin: 01/14/19 08:45 Dose: 2 ml Sodium Chloride (Ns Flush) 2 ml IV.FLUSH PRN PRN PRN Reason: FLUSH AFTER USING IV ACCESS Trazodone HCl (Desyrel) 100 mg PO [facility] Last Admin: 01/13/19 22:15 Dose: 100 mg <Bonny Harry - Last Filed: 01/14/19 12:31> Active Medications: Active Medications Albuterol (Duoneb Neb (Prn)) 1 ampul NEB Q2HR NEB PRN PRN Reason: SHORTNESS OF BREATH/WHEEZING Last Admin: 01/14/19 18:31 Dose: 1 ampul Buspirone HCl (Buspar) 30 mg PO TID [facility] Last Admin: 01/14/19 17:00 Dose: 30 mg Chlorpromazine HCl (Thorazine) 200 mg PO BID [facility] Last Admin: 01/14/19 20:36 Dose: 200 mg Gabapentin (Neurontin) 300 mg PO [facility] Last Admin: 01/14/19 20:36 Dose: 300 mg Heparin Sodium (Porcine) (Heparin Inj) 5,000 units SQ Q12HR [facility] Last Admin: 01/14/19 20:36 Dose: 5,000 units Piperacillin/Tazobactam/Dextrose (Zosyn 2.25 Gm Premix) 2.25 gm in 50 mls @ 100 mls/hr IV.SIG Q6H [facility] Last Admin: 01/14/19 21:34 Dose: 100 mls/hr Ondansetron HCl (Zofran Inj) 4 mg IV.PUSH Q8H PRN PRN Reason: NAUSEA Pantoprazole Sodium (Protonix) 40 mg PO DAILY [facility] Last Admin: 01/14/19 12:59 Dose: 40 mg Sodium Chloride (Ns Flush) 2 ml IV.FLUSH BID [facility] Last Admin: 01/14/19 20:37 Dose: 2 ml Sodium Chloride (Ns Flush) 2 ml IV.FLUSH PRN PRN PRN Reason: FLUSH AFTER USING IV ACCESS Trazodone HCl (Desyrel) 100 mg PO [facility] Last Admin: 01/14/19 20:36 Dose: 100 mg <Stanley Rome E - Last Filed: 01/14/19 21:59> Allergies Allergy/AdvReac Type Severity Reaction Status Date / Time iodine Allergy Severe Cardiac Verified 01/13/19 16:05 Arrest potassium iodide Allergy Severe Cardiac Verified 01/13/19 16:05 Arrest povidone-iodine Allergy Severe Cardiac Verified 01/13/19 16:05 Arrest sodium iodide Allergy Severe Cardiac Verified 01/13/19 16:05 Arrest sodium iodide Allergy Severe Cardiac Verified 01/13/19 16:05 Arrest penicillin G Allergy Unknown pt states Verified 01/13/19 16:05 not allergic to penicillin *MDRO Multi-Drug Resistant Allergy Unknown unknown Uncoded 01/13/19 16:05 Organism Home Medications Medication Instructions Recorded Confirmed Type atorvastatin 40 mg PO QPM 01/13/19 01/13/19 History buspirone 30 mg PO TID 01/13/19 01/13/19 History chlorpromazine 200 mg PO BID 01/13/19 01/13/19 History diphenhydramine HCl 100 mg PO 01/13/19 01/13/19 History gabapentin 300 mg PO HS 01/13/19 01/13/19 History pantoprazole 40 mg PO BID 01/13/19 01/13/19 History trazodone 100 mg PO 01/13/19 01/13/19 History Exam Vital signs: Vital Signs 01/13/19 15:06 01/13/19 17:32 01/13/19 20:15 Temperature 98.7 F Pulse Rate 99 H 100 H 102 H Respiratory Rate 16 21 18 Blood Pressure 106/64 139/87 124/68 Pulse Oximetry 95 97 96 01/13/19 20:55 01/13/19 23:50 01/14/19 00:00 Temperature 98.6 F 99.7 F H Pulse Rate 97 H 96 H 94 H Respiratory Rate 20 20 Blood Pressure 111/67 108/57 L Pulse Oximetry 94 L 93 L 01/14/19 03:46 02/23/19 04:05 01/14/19 08:00 Temperature 97.8 F 98.4 F Pulse Rate 77 78 81 Respiratory Rate 20 18 Blood Pressure 112/60 101/66 Pulse Oximetry 92 L 94 L 01/14/19 11:21 01/14/19 12:00 Temperature 97.8 F Pulse Rate 84 101 H Respiratory Rate 16 20 Blood Pressure 100/51 L Pulse Oximetry 97 Intake & Output 01/13/19 01/14/19 01/14/19 18:59 06:59 18:59 Intake Total 1100 / 1100 1174 / 1174 600 / 600 Output Total 950 / 950 Balance 1100 / 1100 224 / 224 600 / 600 Weight 81.647 kg 70.2 kg Intake: IV 1100 / 1100 1054 / 1054 600 / 600 NS Inj 1,000 ML @ 100 mls/hr IV 550 / 550 550 / 550 .CONT .Q10H [facility] Rx#:[id number] Cleocin Inj 600 MG In NS Inj 104 / 104 100 ML @ 208 mls/hr IV.SIG ONCE ONE Rx#:[id number] Zosyn 2.25 GM Premix 2.25 gm In 100 / 100 50 / 50 50 ml @ 100 mls/hr IV.SIG Q6H [facility] Rx#:[id number] KCl 10 mEq Premix Inj 10 meq In 100 / 100 200 / 200 100 ml @ 100 mls/hr IV.SIG Q1H [facility] Rx#:[id number] NS Inj 1,000 ML @ Wide Open IV. 1000 / 1000 SIG BOLUS ONE Rx#:[id number] Oral 120 / 120 Output: Urine 950 / 950 Other: # Bowel Movements 0 Weight On Admission 69.2 kg <Bonny Harry - Last Filed: 01/14/19 12:31> Vital signs: Vital Signs 01/13/19 23:50 01/14/19 00:00 01/14/19 03:46 Temperature 99.7 F H Pulse Rate 96 H 94 H 77 Respiratory Rate 20 Blood Pressure 108/57 L Pulse Oximetry 93 L 01/14/19 04:05 01/14/19 08:00 01/14/19 11:21 Temperature 97.8 F 98.4 F Pulse Rate 78 82 84 Respiratory Rate 20 18 16 Blood Pressure 112/60 101/66 Pulse Oximetry 92 L 94 L 01/14/19 12:00 02/23/19 16:00 01/14/19 18:32 Temperature 97.8 F 98.2 F Pulse Rate 88 86 90 Respiratory Rate 20 20 14 Blood Pressure 100/51 L 111/63 Pulse Oximetry 97 97 01/14/19 19:35 Temperature 98.0 F Pulse Rate 100 H Respiratory Rate 18 Blood Pressure 113/53 L Pulse Oximetry Intake & Output 01/14/19 01/14/19 01/15/19 06:59 18:59 06:59 Intake Total 1174 / 1174 1810 / 1810 Output Total 950 / 950 1500 / 1500 Balance 224 / 224 310 / 310 Weight 70.2 kg Intake: IV 1054 / 1054 850 / 850 NS Inj 1,000 ML @ 100 mls/hr IV 550 / 550 550 / 550 .CONT .Q10H [facility] Rx#:[id number] Cleocin Inj 600 MG In NS Inj 104 / 104 100 ML @ 208 mls/hr IV.SIG ONCE ONE Rx#:[id number] Zosyn 2.25 GM Premix 2.25 gm In 100 / 100 100 / 100 50 ml @ 100 mls/hr IV.SIG Q6H [facility] Rx#:[id number] KCl 10 mEq Premix Inj 10 meq In 200 / 200 100 ml @ 100 mls/hr IV.SIG Q1H [facility] Rx#:[id number] KCl 20 mEq Premix Inj 20 meq In 200 / 200 100 ml @ 50 mls/hr IV.SIG Q2H [facility] Rx#:[id number] Oral 120 / 120 960 / 960 Output: Urine 950 / 950 1500 / 1500 Other: # Bowel Movements 0 2 Weight On Admission 69.2 kg <Stanley Rome E - Last Filed: 01/14/19 21:59> Results - Labs CBC & Chem 7: 01/14/19 06:15 01/14/19 06:15 Labs: Laboratory Results - last 24 hr 01/13/19 01/13/19 01/13/19 15:34 15:34 15:34 WBC 27.8 H RBC 4.78 Hgb 14.8 Hct 42.4 MCV 88.7 MCH 31.1 MCHC 35.0 RDW 15.5 Plt Count 355 MPV 9.9 Prelim Diff (Auto) Slide review pending Neut % (Auto) 85.5 H Lymph % (Auto) 5.5 L [place] % (Auto) 8.9 H Eos % (Auto) 0.0 Baso % (Auto) 0.1 Neut # (Auto) 23.8 H Lymph # (Auto) 1.5 [place] # (Auto) 2.5 H Eos # (Auto) 0.0 Baso # (Auto) 0.0 WBC Differential Manual diff final Seg Neuts % (Manual) 85 H Band Neuts % (Manual) 2 Lymphocytes % (Manual) 5 L Monocytes % (Manual) 7 Promyelocytes % (Man) 1 H Abs Neuts (Manual) 24.5 H Differential Comment . Dohle Bodies Present H Platelet Estimate Normal Platelet Morphology Normal PT 9.8 INR 1.0 APTT 33.6 H Sodium 121 L* Potassium 2.1 L* Chloride 71 L Carbon Dioxide 32.8 H Anion Gap 17 H BUN 54 H Creatinine 2.83 H Estimated GFR 23 L Random Glucose 120 H Lactic Acid Calcium 8.8 Magnesium 2.6 H Total Bilirubin 1.1 H AST 23 ALT 23 Alkaline Phosphatase 102 Troponin I Less than 0.02 L B-Natriuretic Peptide Total Protein 7.7 Albumin 3.8 Urine Color Urine Clarity Urine pH Ur Specific [place] Urine Protein Urine Glucose (UA) Urine Ketones Urine Occult Blood Urine Nitrate Urine Bilirubin Urine Urobilinogen Ur Leukocyte Esterase Urine WBC Hyaline Casts Urine Mucus Micro UA Comment Ur Microscopic Review Urine Culture Comments 01/13/19 01/13/19 01/13/19 15:34 19:10 19:15 WBC RBC Hgb Hct MCV MCH MCHC RDW Plt Count MPV Prelim Diff (Auto) Neut % (Auto) Lymph % (Auto) [place] % (Auto) Eos % (Auto) Baso % (Auto) Neut # (Auto) Lymph # (Auto) [place] # (Auto) Eos # (Auto) Baso # (Auto) WBC Differential Seg Neuts % (Manual) Band Neuts % (Manual) Lymphocytes % (Manual) Monocytes % (Manual) Promyelocytes % (Man) Abs Neuts (Manual) Differential Comment Dohle Bodies Platelet Estimate Platelet Morphology PT INR APTT Sodium Potassium Chloride Carbon Dioxide Anion Gap BUN Creatinine Estimated GFR Random Glucose Lactic Acid 1.3 Calcium Magnesium Total Bilirubin AST ALT Alkaline Phosphatase Troponin I B-Natriuretic Peptide 16 Total Protein Albumin Urine Color Yellow Urine Clarity Hazy H Urine pH 5.0 Ur Specific [place] 1.016 Urine Protein Negative Urine Glucose (UA) Negative Urine Ketones Negative Urine Occult Blood Negative Urine Nitrate Negative Urine Bilirubin Negative Urine Urobilinogen Less than 2 Ur Leukocyte Esterase Negative Urine WBC 1 Hyaline Casts 55 Urine Mucus Few H Micro UA Comment Culture not ind Ur Microscopic Review Not Reportable Urine Culture Comments Culture not ind 01/13/19 01/14/19 01/14/19 19:15 06:15 06:15 WBC 11.8 H D RBC 3.66 L Hgb 11.4 L D Hct 33.0 L MCV 90.1 MCH 31.1 MCHC 34.5 RDW 15.6 Plt Count 256 MPV 9.6 Prelim Diff (Auto) Neut % (Auto) 70.9 H Lymph % (Auto) 19.1 [place] % (Auto) 9.5 H Eos % (Auto) 0.3 Baso % (Auto) 0.2 Neut # (Auto) 8.4 H Lymph # (Auto) 2.3 [place] # (Auto) 1.1 H Eos # (Auto) 0.0 Baso # (Auto) 0.0 WBC Differential . Seg Neuts % (Manual) Band Neuts % (Manual) Lymphocytes % (Manual) Monocytes % (Manual) Promyelocytes % (Man) Abs Neuts (Manual) Differential Comment Auto diff final Dohle Bodies Platelet Estimate Platelet Morphology PT INR APTT Sodium 126 L 137 D Potassium 2.9 L* D 2.2 L* Chloride 83 L D 97 L D Carbon Dioxide 31.3 30.8 Anion Gap 12 9 BUN 48 H 36 H Creatinine 2.11 H 1.40 H Estimated GFR 33 L 52 L Random Glucose 106 77 Lactic Acid Calcium 7.7 L D 7.9 L Magnesium Total Bilirubin AST ALT Alkaline Phosphatase Troponin I B-Natriuretic Peptide Total Protein Albumin Urine Color Urine Clarity Urine pH Ur Specific [place] Urine Protein Urine Glucose (UA) Urine Ketones Urine Occult Blood Urine Nitrate Urine Bilirubin Urine Urobilinogen Ur Leukocyte Esterase Urine WBC Hyaline Casts Urine Mucus Micro UA Comment Ur Microscopic Review Urine Culture Comments - Imaging Impressions Chest X-Ray 01/13/19 15:13 CONCLUSION: Negative for acute process Head CT 01/13/19 15:13 CONCLUSION: 1. Negative CT Head non contrast. . . Abdomen/Pelvis CT 01/13/19 15:17 CONCLUSION: There is a tiny nonobstructing stone in the right kidney with hazy opacity right lower lobe possibly inflammatory, otherwise unremarkable. <Chester,Bonny C - Last Filed: 01/14/19 12:31> - Labs CBC & Chem 7: 01/14/19 06:15 01/14/19 06:15 Labs: Laboratory Results - last 24 hr 01/14/19 01/14/19 06:15 06:15 WBC 11.8 H D RBC 3.66 L Hgb 11.4 L D Hct 33.0 L MCV 90.1 MCH 31.1 MCHC 34.5 RDW 15.6 Plt Count 256 MPV 9.6 Neut % (Auto) 70.9 H Lymph % (Auto) 19.1 [place] % (Auto) 9.5 H Eos % (Auto) 0.3 Baso % (Auto) 0.2 Neut # (Auto) 8.4 H Lymph # (Auto) 2.3 [place] # (Auto) 1.1 H Eos # (Auto) 0.0 Baso # (Auto) 0.0 WBC Differential . Differential Comment Auto diff final Sodium 137 D Potassium 2.2 L* Chloride 97 L D Carbon Dioxide 30.8 Anion Gap 9 BUN 36 H Creatinine 1.40 H Estimated GFR 52 L Random Glucose 77 Calcium 7.9 L <Stanley Rome E - Last Filed: 01/14/19 21:59> Assessment and Plan - Plan 1. Chronic nausea and vomiting. Patient states he has had daily vomiting his entire life. He admits to forcing himself to vomit at least once daily. Recent attempt at upper endoscopy was aborted due to severe esophageal ulceration, per patient's report. Presented to ER after episode of syncope with hyponatremia, hypokalemia, elevated BUN and creatinine and sepsis. History of schizophrenia, consider psychogenic etiology for chronic vomiting, bulimia. Continue fluid and electrolyte replacement. Antiemetics as needed. We will plan for EGD tomorrow. Okay for full liquid/soft diet today. N.p.o. after midnight. <Bonny Harry - Last Filed: 01/14/19 12:31> - Attending Attestation Patient with nausea vomiting syncope hyponatremia hypokalemia and leukocytosis with evidence of dehydration Patient seen and examined Agree with above Continue with current supportive care Monitor labs EGD tomorrow <Stanley Rome - Last Filed: 01/14/19 21:59>
[2019-01-14] MEDS: Gabapentin 300 MG Capsule PO SCH (20:36)
[2019-01-14] MEDS: traZODone 100 MG Tablet PO SCH (20:36)
--- NOTE | 2019-01-14 21:14 | ECG ---
Date Performed: 01/13/2019 Time Performed: 15:32:29 PTAGE: 58 years EKG: Sinus rhythm MODERATE ST DEPRESSION PROLONGED QT INTERVAL ABNORMAL ECG PREVIOUS TRACING : 06/28/2016 15.38 Since the previous tracing, no significant change noted DOCTOR: Konstantin Sinha Interpretating Date/Time 01/14/2019 21:13:24
[2019-01-15] MEDS: Piperacil/Tazo 2.25 GM Premix 2.25 GM/50 ML PIGGYBACK IV.SIG SCH ×4 (03:51→21:52)
[2019-01-15 08:38] LABS: Calcium 7.8 mg/dL (8.5-10.1); Carbon Dioxide 28.5 meq/L (21.0-32.0); Potassium 3.4 meq/L (3.5-5.1)
[2019-01-15] MEDS: Heparin - SQ 10,000 UNITS/ML Vial SQ SCH ×2 (09:09→20:44)
[2019-01-15] MEDS: Sodium Chloride 0.9% 2 ML Flush BID IV.FLUSH SCH ×2 (09:09→20:44)
[2019-01-15 09:55] LABS: Hematocrit 33.3 % (39.0-51.0); Hemoglobin 11.3 gm/dL (13.0-17.0); Mean Corpuscular HGB Conc 33.8 % (32.0-36.0); Mean Corpuscular Volume 88.8 fL (80.0-100.0); Mean Platelet Volume 9.3 fL (7.0-11.0); Platelet Count 238 th/mm3 (150-450); Red Blood Count 3.76 mil/mm3 (4.50-5.90); Red Cell Distribution Width 15.2 % (11.6-17.2); White Blood Count 7.5 th/mm3 (4.0-11.0)
[2019-01-15] MEDS ORDERED: Lidocaine PF 1% Inj 5 ML Syringe OTHER ONE (12:07)
--- NOTE | 2019-01-15 13:12 | P.PCN ---
Date of procedure: 01/15/19 Pre-op diagnosis: Nausea vomiting electrolyte imbalance Procedure: PROCEDURE PERFORMED EGD with biopsies PROCEDURE: The procedure, risks and benefits were discussed with Patient/POA and informed consent was obtained. Anesthesia sedated Patient with Diprivan. Patient was placed in the left lateral decubitus position. EGD: The Pentax videoscope was introduced through the oropharynx and advanced to the second portion of the duodenum under direct visualization. Retroflexion was performed in the stomach. FINDINGS: The esophagus there was significant reflux esophagitis with ulceration of the distal esophagus this would amount to a grade the almost circumferential and involving the distal one third of the esophagus multiple biopsies were taken the more proximal portions of the esophagus were unremarkable The stomach there was a moderate sized hiatal hernia there was significant amount of erythema in the antrum but no ulcerations or erosions the rest of the stomach was unremarkable antral biopsies were taken for further evaluation upon trying to advance the scope through the pylorus it was very difficult to get the pylorus to relax and allow the scope to go through even after multiple attempts it still appeared to be difficult to traverse the pylorus but no obvious tear or bleeding was noted as a result of this forced entry making unlikely that there is a true stricture but spasm may be an issue and delayed emptying may be an issue The duodenum this appeared to be unremarkable and within normal limits ESTIMATED BLOOD LOSS: None SPECIMENS REMOVED: Esophageal and gastric biopsies COMPLICATIONS: None IMPRESSION: Severe esophagitis Hiatal hernia Gastritis Possible pyloric stenosis or spasm PLAN: Await biopsies Recommend upper GI series PPI twice daily EGD in 2 months Low residue diet Anesthesia: NOAH Surgeon: Stanley Rome Condition: stable Disposition: floor
--- NOTE | 2019-01-15 14:20 | P.PNIM ---
Subjective Interval history: Patient seen earlier this morning. He reports some nausea but no vomiting. Due for EGD today. Physical Exam Vital signs: Vital Signs 01/14/19 16:00 01/14/19 18:32 01/14/19 19:35 Temperature 98.2 F 98.0 F Pulse Rate 86 90 100 H Respiratory Rate 20 14 18 Blood Pressure 111/63 113/53 L Pulse Oximetry 97 01/14/19 23:05 01/15/19 00:15 01/15/19 03:10 Temperature 98.3 F 98.0 F Pulse Rate 78 66 86 Respiratory Rate 16 18 Blood Pressure 99/55 L 151/70 H Pulse Oximetry 94 L 96 01/15/19 04:00 01/15/19 08:00 01/15/19 08:34 Temperature 97.2 F L Pulse Rate 85 93 H 94 H Respiratory Rate 19 16 Blood Pressure 125/74 Pulse Oximetry 93 L 01/15/19 09:00 01/15/19 12:00 Temperature 97.6 F Pulse Rate 72 83 Respiratory Rate 18 Blood Pressure 158/83 H Pulse Oximetry 99 Intake & Output 01/14/19 01/15/19 01/15/19 18:59 06:59 18:59 Intake Total 1810 / 1810 100 / 100 50 / 50 Output Total 1500 / 1500 Balance 310 / 310 100 / 100 50 / 50 Weight 71.5 kg Intake: IV 850 / 850 100 / 100 50 / 50 NS Inj 1,000 ML @ 100 mls/hr IV 550 / 550 .CONT .Q10H [facility] Rx#:[id number] Zosyn 2.25 GM Premix 2.25 gm In 100 / 100 100 / 100 50 / 50 50 ml @ 100 mls/hr IV.SIG Q6H [facility] Rx#:[id number] KCl 20 mEq Premix Inj 20 meq In 200 / 200 100 ml @ 50 mls/hr IV.SIG Q2H [facility] Rx#:[id number] Oral 960 / 960 Output: Urine 1500 / 1500 Other: # Voids 5 Date of Last Bowel Movement 01/15/19 # Bowel Movements 2 Narrative: GENERAL: Patient appears somewhat disheveled, appears older than stated age, in no apparent distress. CARDIOVASCULAR: Normal rate and regular rhythm without murmurs, gallops, or rubs. RESPIRATORY: Good respiratory efforts. Breath sounds equal and clear to auscultation bilaterally. GASTROINTESTINAL: Abdomen soft, non-tender, non-distended. Normal active bowel sounds MUSCULOSKELETAL: Extremities without cyanosis, or edema. NEURO: Alert & Oriented x4 to person, place, time, situation. Moves all ext x4 PSYCH: Appropriate mood and affect. Results Labs CBC & Chem 7: 01/15/19 09:37 01/15/19 06:40 Labs: Microbiology 01/13/19 19:09 Blood - Peripheral Aerobic Blood Culture - Preliminary No growth in 2 days 01/13/19 19:09 Blood - Peripheral Anaerobic Blood Culture - Preliminary No growth in 2 days 01/13/19 19:09 Blood - Peripheral Aerobic Blood Culture - Preliminary No growth in 2 days 01/13/19 19:09 Blood - Peripheral Anaerobic Blood Culture - Preliminary No growth in 2 days Assessment and Plan Plan 58-year-old male admitted with acute renal failure secondary to intractable nausea and vomiting. Sepsis due to possible aspiration pneumonia. acute kidney injury/ Hypokalemia/ Hyponatremia/ Dehydration due to intractable vomiting continue with IV fluid and electrolyte replacement- -renal functions significantly improved. Continue to monitor Intractable nausea/vomiting: This could be secondary to marijuana use. Patient also reported history of ulcers -GI consulted. Symptoms significantly improved. -EGD today - Protonix Marijuana abuse: -Patient reports he is a daily user. I advised him that this could contribute to his intractable nausea and vomiting but he indicated he has no intention to quit. Patient was counseled to quit given his symptoms. Sepsis due to possible pneumonia - possible aspiration continue with broad spectrum IV antibiotics and follow the cultures- monitor CBC and temps. -Plan to transition to Augmentin tomorrow. Schizophrenia Continue home meds GI prophylaxis: PPI. DVT PPx: Heparin Progress Note: Quality VTE Deep Vein Thrombosis/Pulmonary Embolism Present on Admission: No
--- NOTE | 2019-01-15 17:46 | FL ---
EXAM DATE: 01/15/2019 5:39 PM EST AGE/SEX: 58 years / Male INDICATIONS: Vomiting and diarrhea. CLINICAL DATA: This is the patient's initial encounter. Patient reports that signs and symptoms have been present for 4 - 6 days and indicates a pain score of 2/10. MEDICAL/SURGICAL HISTORY: None. Appendectomy. [place] [facility] [place] 01/13/2019. . FLUORO TIME: 1.7 minutes. IMAGE COUNT: 32 RADIATION DOSE: 4.9865 DAP FINDINGS: Vendor Management Consultant Film: Unremarkable. [place]: The patient initiates swallowing normally. The gastroesophageal junction is normal in appearance. Stomach: The rugal folds are normal in thickness, and there is no evidence of mass or ulceration. Duodenum: The duodenal bulb is distensible without evidence of ulcer. The duodenal C loop has a nor mal configuration. CONCLUSION: 1. Unremarkable upper GI examination. Electronically signed by: Angelo Calzada MD Board Certified Radiologist 01/15/2019 5:45 PM EST
[2019-01-15] MEDS: traZODone 100 MG Tablet PO SCH (20:43)
[2019-01-15] MEDS: Gabapentin 300 MG Capsule PO SCH (20:43)
[2019-01-16] MEDS: Piperacil/Tazo 2.25 GM Premix 2.25 GM/50 ML PIGGYBACK IV.SIG SCH ×2 (03:28→09:49)
[2019-01-16 05:50] LABS: Hematocrit 31.1 % (39.0-51.0); Hemoglobin 10.7 gm/dL (13.0-17.0); Mean Corpuscular HGB Conc 34.2 % (32.0-36.0); Mean Corpuscular Hemoglobin 31.5 pg (27.0-34.0); Mean Corpuscular Volume 91.9 fL (80.0-100.0); Mean Platelet Volume 10.1 fL (7.0-11.0); Platelet Count 206 th/mm3 (150-450); Red Blood Count 3.39 mil/mm3 (4.50-5.90); Red Cell Distribution Width 15.2 % (11.6-17.2); White Blood Count 6.7 th/mm3 (4.0-11.0)
[2019-01-16 06:18] LABS: Anion Gap 7 meq/L (5-15); Blood Urea Nitrogen 6 mg/dL (7-18); Calcium 7.9 mg/dL (8.5-10.1); Carbon Dioxide 30.5 meq/L (21.0-32.0); Chloride 106 meq/L (98-107); Glomerular Filtration Rate Greater Than 89 mL/min (>89); Glucose,Random 89 mg/dL (74-106); Potassium 3.1 meq/L (3.5-5.1); Sodium 143 meq/L (136-145)
[2019-01-16 08:45] VITALS: BP 177/84; RESP 18; TEMP 97.6; O2SAT 97
[2019-01-16 09:41] VITALS: PULSE 82
[2019-01-16] MEDS: Sodium Chloride 0.9% 2 ML Flush BID IV.FLUSH SCH (09:50)
[2019-01-16] MEDS: Heparin - SQ 10,000 UNITS/ML Vial SQ SCH (09:50)
--- NOTE | 2019-01-16 10:42 | P.DS ---
DS: Providers Date of admission: 01/13/19 18:18 Primary care physician: Temo Hunt MD Consults: 01/13/19 18:25 Consult to Gastroenterology Routine Consulting Provider: Stanley Rome Reason for Consultation: intractable nausea/vomiting. Notified:: Service Spoke with:: ALLAN Date Notified:: 01/13/19 Time Notified:: 18:29 Ordering Provider: VIANEY 01/14/19 08:40 HUB Only Consult Order Routine Consulting Provider: Berto Thomson Brief History from admission: HPI as documented by the admitting physician: patient is a 58 y/o male with history of schizophrenia who presented to ER after he passed out earlier. he says that he's had persistent nausea and vomiting for the past few months. he reportedly had an EGD and colonoscopy recently which showed esophageal ulcers and colon polyps. he says that earlier today he had some sob and then he passed out. he remained unconscious for about three minutes. he denies any other prodromal symptoms before the incident including chest pain, dizziness. he denies any abdominal pain, diarrhea, cough, although he says that he had a low grade fever at home. Patient update on day of discharge: Patient reports he is feeling great today. He is tolerating his diet. He denies nausea or vomiting. We discussed discharge planning at length. Significant other at bedside. Explained the need to take medications as prescribed and to not drink alcohol. DS: Summary 58-year-old male admitted with acute renal failure secondary to intractable nausea and vomiting. Sepsis due to possible aspiration pneumonia. Evaluation and treatment course detailed below: Acute kidney injury/ Hypokalemia/ Hyponatremia/ Dehydration due to intractable vomiting -Patient treated with IV fluid resuscitation and electrolyte replacement -Renal functions improved and returned to baseline. Intractable nausea/vomiting: This could be secondary to marijuana use. Patient also reported history of ulcers -GI followed the patient. He underwent EGD which showed Severe esophagitis, Hiatal hernia, Gastritis, Possible pyloric stenosis or spasm. Biopsies were taken. Upper GI series unremarkable. -Patient was started on Protonix. His symptoms significantly improved. He is discharged on Protonix and advised to follow-up outpatient with GI. Marijuana abuse: -Patient reports he is a daily user. I advised him that this could contribute to his intractable nausea and vomiting but he indicated he has no intention to quit. Patient was counseled to quit given his symptoms. Sepsis due to possible pneumonia - possible aspiration -Patient initially treated with broad-spectrum antibiotics including Zosyn. His respiratory symptoms significantly improved and he was stable on room air. He was transitioned to Augmentin to complete the course of treatment. Schizophrenia Continue home meds Time Spent with Patient Total time spent providing and/or coordinating discharge services: Quality: VTE Deep Vein Thrombosis/Pulmonary Embolism Present on Admission: No Exam Narrative Exam Narrative: GENERAL: Patient appears somewhat disheveled, appears older than stated age, in no apparent distress. CARDIOVASCULAR: Normal rate and regular rhythm without murmurs, gallops, or rubs. RESPIRATORY: Good respiratory efforts. Breath sounds equal and clear to auscultation bilaterally. GASTROINTESTINAL: Abdomen soft, non-tender, non-distended. Normal active bowel sounds MUSCULOSKELETAL: Extremities without cyanosis, or edema. NEURO: Alert & Oriented x4 to person, place, time, situation. Moves all ext x4 PSYCH: Appropriate mood and affect. Results Pending studies at discharge: Pending at discharge 01/15/19 08:09 Surgical [PTH] Routine Labs on day of discharge: Labs from last 24 hours 01/16/19 01/16/19 04:10 04:10 WBC 6.7 RBC 3.39 L Hgb 10.7 L Hct 31.1 L MCV 91.9 MCH 31.5 MCHC 34.2 RDW 15.2 Plt Count 206 MPV 10.1 Sodium 143 Potassium 3.1 L Chloride 106 Carbon Dioxide 30.5 Anion Gap 7 BUN 6 L Creatinine 0.86 Estimated GFR Greater than 89 Random Glucose 89 Calcium 7.9 L Preliminary micro results at discharge 01/13/19 19:09 Aerobic Blood Culture - Preliminary Blood - Peripheral No growth in 2 days Anaerobic Blood Culture - Preliminary No growth in 2 days 01/13/19 19:09 Aerobic Blood Culture - Preliminary Blood - Peripheral No growth in 2 days Anaerobic Blood Culture - Preliminary No growth in 2 days Impressions ITS Impressions Chest X-Ray 01/13/19 15:13 CONCLUSION: Negative for acute process Head CT 01/13/19 15:13 CONCLUSION: 1. Negative CT Head non contrast. . . Abdomen/Pelvis CT 01/13/19 15:17 CONCLUSION: There is a tiny nonobstructing stone in the right kidney with hazy opacity right lower lobe possibly inflammatory, otherwise unremarkable. Upper GI Series 01/15/19 00:00 CONCLUSION: 1. Unremarkable upper GI examination. Discharge Plan Discharge Disposition Patient Disposition: Discharge Home Discharge Condition Condition: Stable Discharge Order Discharge Orders: Discharge Order (Routine); Ordered 01/16/19 Ordered By: Haile Cruz Physicians Team ED Provider: Natalie Bowden ED Midlevel Provider: Christina George Primary Care Provider: Temo Hunt Attending Provider: Haile Cruz Other Providers: Stanley Rome ; Berto Thomson Rxs /Orders / Referrals /Forms Prescriptions: New amoxicillin-pot clavulanate [Augmentin] 875-125 mg tablet 1 tab PO BID Qty: 4 RF: 0 Continue atorvastatin 40 mg Tablet 40 mg PO QPM RF: 0 diphenhydramine HCl 50 mg Capsule 100 mg PO HS RF: 0 trazodone 100 mg Tablet 100 mg PO HS RF: 0 buspirone 30 mg Tablet 30 mg PO TID RF: 0 gabapentin 300 mg Capsule 300 mg PO HS RF: 0 chlorpromazine 200 mg Tablet 200 mg PO BID RF: 0 pantoprazole 40 mg Tablet,Delayed Release (Dr/Ec) 40 mg PO BID Qty: 60 RF: 0 Referrals: Temo Hunt MD [Primary Care Provider] - See Instructions (follow up appointment [facility] Doctor [phone]-- pcp 3:45 01/19/19) Stanley Rome MD [Physician] - See Instructions (patient to call office for appointment) Discharge Instructions Patient Printed Instructions: Amoxicillin/Clavulanate Potassium (By mouth), Pantoprazole (By mouth) Post Discharge Care Plan Care Plan Goals: Discharge Care Plan Goals for Pneumonia You have been diagnosed with pneumonia. This is a serious lung infection. Most cases of pneumonia are caused by bacteria. Pneumonia most often occurs in older adults, young children, and people with chronic health problems. Directions to Meet your Goals: 1. Home care: * Take your medicine exactly as directed. Dont skip doses. Continue taking your antibiotics as until they are all gone, even if you start to feel better. This will prevent the pneumonia from coming back. * Drink at least 8 glasses of water daily, unless directed otherwise. This helps to loosen and thin secretions so that you can cough them up. * Use a cool-mist humidifier in your bedroom. Be sure to clean the humidifier daily. * Dont use medicines to suppress your cough unless your cough is dry, painful, or interferes with your sleep. Coughing up mucus is normal. You may use an expectorant if your doctor says its okay. * You can use warm compresses or a heating pad on the lowest setting to relieve chest discomfort. Use several times a day for 15-20 minutes at a time. To prevent injury to your skin, set the temperature to warm, not hot. Dont put the compress or pad directly on your skin. Make certain it has a cover or wrap it in a towel. This is to prevent skin epps. * Get plenty of rest until your fever, shortness of breath, and chest pain go away. * Plan to get a flu shot every year. The flu is a common cause of pneumonia. Getting a flu shot every year can help prevent both the flu and pneumonia. 2. Getting the pneumococcal vaccine: * Talk with your doctor about getting the pneumococcal vaccine. Pneumococcal pneumonia is caused by bacteria that spread from person to person. It can cause minor problems, such as ear infections. But it can also turn into life- threatening illnesses of the lungs (pneumonia), the covering of the brain and spinal cord (meningitis), and the blood (bacteremia). * Make sure to ask your doctor if you should have the vaccine. Children under 2 years of age, adults over age 65, people with certain health conditions, and smokers are at the highest risk of pneumococcal disease. This vaccine can help prevent pneumococcal disease in both adults and children. 3. Follow-up care: Do Not miss your follow-up appointment. Keep up with all your appointments and yearly check ups 4. When to call your doctor: Call your doctor immediately if you have any of the following: Fever of 100.4F (38C) or higher, or as directed by your healthcare provider Mucus from the lungs (sputum) thats yellow, green, bloody, or smells bad Vomiting Any symptoms that get worse 5. Call 911: Call 911 right away if you have any of the following: Chest pain Trouble breathing Blue lips or fingernails Status ED Status: Left Department Discharge Information Discharge Date/Time: 01/16/19 11:57
== END 2019-01-16 11:57 | disposition home or self-care (01) | DRG 871 ==
LOC: NEPD 14:48 → NEDA 18:18 → N04 21:11
PROVIDERS: ADMIT Family Medicine; ATTEND Family Medicine
PROC: PANENDO (2019-01-15 12:07)
CPT/HCPCS: 70450; 71010; 71045; 74176; 74241; 80048; 80053; 81001; 83520; 83605; 83735; 83880; 84484; 85025; 85027; 85610; 85730; 87040; 88305; 88312; 90658; 90686; 90760; 93005; 94640; 94665; 96360; 99285; J0696; J1644; J2543; J2704; J3480; J7030; Q2038